=== PATIENT | female | born 1950 | race Caucasian/White ===

== ENCOUNTER → 2019-01-27 | Outpatient (CLI) | payer MEDICARE ==
--- NOTE | 2019-01-27 11:46 | RAD ---
RIGHT LEG VENOUS DOPPLER STUDY: Clinical indications: The patient is positive for factor V gene. DVT 1 year ago and patient is on blood thinner. History of DVT from the groin to the knee according to the patient. COMPARISON: None available.. Findings: Duplex sonography (including law scale evaluation and color flow and waveform spectral analysis) of the proximal aspect of the greater saphenous vein and proximal aspect of the profunda femoral vein and the entire length of the common femoral and superficial femoral and popliteal veins and the tibioperoneal trunk and the proximal aspect of the posterior tibial and peroneal veins of the right leg was performed. There is partial nonocclusive thrombosis within the proximal and mid and distal superficial femoral veins and within the popliteal vein and the posterior tibial veins. The common femoral vein and proximal greater saphenous vein and proximal profunda vein are patent. The peroneal veins are not well visualized. Impression: Partial nonocclusive thrombosis of the right lower extremity as discussed above which may be acute or chronic in nature. Electronically signed by: Sander Guido MD (01/27/2019 11:43 AM) [id number]
== END | disposition home or self-care (01) ==
LOC: US 10:23
PROVIDERS: ATTEND Physician Assistant
DX: I82.411 Acute embolism and thrombosis of right femoral vein (principal); I82.431 Acute embolism and thrombosis of right popliteal vein; I82.441 Acute embolism and thrombosis of right tibial vein
CPT/HCPCS: 93971